=== PATIENT | female | born 1985 | race Caucasian/White ===

== ENCOUNTER 2019-05-06 19:24 | Emergency (ER) | payer OTHER ==
[~2019-05-06] VITALS: Ht 167.6 cm; Wt 63.5 kg
--- NOTE | 2019-05-06 19:47 | NUR ---
BIBRA. TO ER BED 10. AAOX4. NOT IN RESP DIDTRESS, BREATHING EVEN AND UNLABORED. AMXIOUS. C/O SOB AND TACHYCARDIA. PT REPORTS THAT SHE HAD THE EPISODE AND HAD TO STOP ON THE SIDE OF THE ROAD. PT PLACED ON MONITOR AND NOTED HR OF 120-130S. MD IS AT BEDSIDE FOR EVAL. AWAITING ORDERS
--- NOTE | 2019-05-06 20:13 | NUR ---
PT REFUSED BLOOD DRAW AND ALESSANDRO LIZAMA MD MADE AWARE
--- NOTE | 2019-05-06 20:40 | NUR ---
MD AT BEDSIDE TALKING TO PT
--- NOTE | 2019-05-06 20:49 | NUR ---
Patient does not wish to proceed with medical care recommended by Gavin Wall. Patient given information related to possible complications, up to and including , which could occur as a result of leaving the hospital at this time. Patient verbalizes understanding of risks involved due to leaving against medical advice. Patient has signed AMA form.
--- NOTE | 2019-05-06 20:49 | NUR ---
Pt ambulatory with a steady gait
[2019-05-06 20:51] VITALS: BP 107/61
== END 2019-05-06 20:51 | disposition left against medical advice (07) ==
LOC: ER 19:26
DX: R06.00 Dyspnea, unspecified (principal); R00.0 Tachycardia, unspecified